=== PATIENT | male | born 1950 | race Caucasian/White ===

== ENCOUNTER 2017-06-11 07:37 | Day surgery (SDC) | payer OTHER ==
[2017-06-01 18:33] VITALS: BMI 23.7
[2017-06-11] MEDS ORDERED: PROPOFOL 20 ML ONE ×2 (07:41)
[2017-06-11] MEDS ORDERED: LIDOCAINE HCL/PF 2% SDV 5ML VIAL ONE (07:42)
[2017-06-11 08:12] VITALS: TEMP 97.7
[2017-06-11 09:46] VITALS: BP 114/79; PULSE 61
--- NOTE | 2017-06-13 12:05 | PATH ---
Surgical Pathology Report Patient Name: [facility]. Rec. #: [id number] /Age/Gender: 1950 (Age: 66) / M Account: [id number] Location: [facility]-ENDOSCOPY Taken: 06/11/2017 Received: 06/11/2017 Reported: 06/13/2017 Physicians: Kristopher Jaimes M.D. Specimen(s) Received BX ANTRUM Clinical History Esophageal varices, rule out colon cancer Postoperative diagnosis: Small distal esophageal varices, gastritis, duodenal erosions Final Diagnosis ANTRUM, BIOPSY: MODERATE CHRONIC GASTRITIS. IMMUNOSTAIN IS NEGATIVE FOR H. PYLORI ORGANISMS. Electronically Signed Lesa Baker M.D. Gross Description Received in formalin, labeled "antrum" are 2 logan, irregular portions of soft tissue averaging 0.3 cm. in greatest dimension. The specimens are submitted in toto in one cassette. /06/12/201706/12/2017
== END 2017-06-11 09:50 | disposition home or self-care (01) ==
LOC: FASU-ENDO 07:37
PROVIDERS: ATTEND Internal Medicine Gastroenterology
PROC: 0DJD8ZZ Inspection of Lower Intestinal Tract, Via Natural or Artificial Opening Endoscopic (ICD-10-PCS; principal; 2017-06-11 08:45)
PROC: 0DB68ZX Excision of Stomach, Via Natural or Artificial Opening Endoscopic, Diagnostic (ICD-10-PCS; 2017-06-11 08:45)
DX: Z12.11 Encounter for screening for malignant neoplasm of colon (principal); Z13.810 Encounter for screening for upper gastrointestinal disorder; K57.30 Diverticulosis of large intestine without perforation or abscess without bleeding; K64.8 Other hemorrhoids; I85.00 Esophageal varices without bleeding; K29.80 Duodenitis without bleeding; K29.50 Unspecified chronic gastritis without bleeding
CPT/HCPCS: 43239; G0121; 88305-TC; 88342-TC